=== PATIENT | female | born 2000 | race Caucasian/White ===

== ENCOUNTER 2023-09-01 16:46 | Emergency (ER) | payer OTHER ==
[~2023-09-01] VITALS: Ht 172.7 cm; Wt 96.8 kg
[2023-09-01 21:11] VITALS: BP 122/73; TEMP 97.9; O2SAT 97
== END 2023-09-01 21:08 | disposition home or self-care (01) ==
LOC: M ED 16:46
DX: M25.362 Other instability, left knee (principal)

== ENCOUNTER 2023-12-28 06:43 | Emergency (ER) | payer OTHER ==
[~2023-12-28] VITALS: Ht 172.7 cm; Wt 103.3 kg
[2023-12-28] MEDS: methocarbamoL 500 MG TAB PO ONE (08:39)
[2023-12-28] MEDS: KETOROLAC 60MG 2ML VIAL IM ONE (08:40)
[2023-12-28] MEDS ORDERED: IBUP-1022 PO (10:40)
[2023-12-28] MEDS ORDERED: METH-1164 PO (10:40)
[2023-12-28 10:48] VITALS: BP 136/80; TEMP 98; O2SAT 98
== END 2023-12-28 11:01 | disposition home or self-care (01) ==
LOC: M ED 06:43
DX: S16.1XXA Strain of muscle, fascia and tendon at neck level, initial encounter (principal); Y92.9 Unspecified place or not applicable; Y93.9 Activity, unspecified; Y99.9 Unspecified external cause status; Z79.899 Other long term (current) drug therapy; Z79.1 Long term (current) use of non-steroidal anti-inflammatories (NSAID)
CPT/HCPCS: 72125; 96372; 99283; J1885

== ENCOUNTER 2024-03-11 10:03 | Emergency (ER) | payer OTHER ==
[~2024-03-11] VITALS: Ht 172.7 cm; Wt 102.2 kg
[~2024-03-11 10:03] MED LIST: IBUP-1022 PO; METH-1164 PO
[2024-03-11 10:04] VITALS: BP 142/88; TEMP 97.2; O2SAT 99
[2024-03-11] MEDS ORDERED: TIZA2TA (10:18)
[2024-03-11] MEDS ORDERED: DULO1CAP5 (10:18)
[2024-03-11 12:32] LABS: BASO % 0.4 % (0.0-1.0); EOS # 0.4 10^3/uL (0.0-0.5); EOS % 3.9 % (0.0-3.0); HEMATOCRIT 43.3 % (36.0-47.0); HEMOGLOBIN 14.1 g/dl (12.0-15.5); LYMPH # 2.8 10^3/uL (1.5-5.0); MEAN CORPUSCULAR HEMOGLOBIN 26.4 pg (27.0-33.0); MEAN CORPUSCULAR HGB CONC 32.6 g/dl (32.0-36.5); MEAN CORPUSCULAR VOLUME 81.1 fl (80.0-96.0); MONO # 0.8 10^3/uL (0.0-0.8); MONO % 7.5 % (2.0-8.0); NEUTROPHILS # 6.6 10^3/uL (1.5-8.5); NEUTROPHILS % 61.9 % (36.0-66.0); PLATELET COUNT, AUTOMATED 410 10^3/uL (150-450); RED BLOOD COUNT 5.34 10^6/uL (4.00-5.40); WHITE BLOOD COUNT 10.6 10^3/uL (4.0-10.0)
[2024-03-11 12:48] LABS: MAGNESIUM LEVEL 1.8 MG/DL (1.8-2.4)
[2024-03-11 12:53] LABS: THYROID STIMULATING HORMONE 0.781 uIU/ML (0.55-4.78)
[2024-03-11 14:43] LABS: CK-MB VALUE MASS < 1.0 NG/ML (<3.6)
[2024-03-11 14:45] LABS: C REACTIVE PROTEIN QUANTITATIV < 0.40 MG/DL (<1.0)
[2024-03-11 14:46] LABS: CPK CREATINE PHOSPHOKINASE 60 U/L (34-145); MB/CK RELATIVE INDEX 1.66 (< OR =4)
[2024-03-12 13:07] LABS: ANTINUCLEAR ANTIBODIES DIRECT Negative (Negative)
== END 2024-03-11 15:34 | disposition home or self-care (01) ==
LOC: M ED 10:03
DX: R07.9 Chest pain, unspecified (principal); F10.10 Alcohol abuse, uncomplicated; Z79.1 Long term (current) use of non-steroidal anti-inflammatories (NSAID); Z79.899 Other long term (current) drug therapy